=== PATIENT | female | born 1940 | race Hispanic/Latino ===

== ENCOUNTER 2021-03-29 12:38 | Outpatient (CLI) | payer MEDICARE ==
--- NOTE | 2021-03-29 15:53 | Mammography Report ---
DIGITAL SCREENING MAMMOGRAM WITH CAD, 03/29/2021 INDICATION: Routine screening mammography. TECHNIQUE: Digital bilateral 2D mammography was obtained in the craniocaudal and mediolateral obliq ue projections. This examination was interpreted with the benefit of Computer-Aided Detection analysi s. COMPARISON: 03/28/2020 FINDINGS: Breast Density: The breasts are heterogeneously dense, which may obscure small masses. There is no evidence of dominant mass, suspicious calcifications or architectural distortion in eithe r breast. Bilateral benign calcification. IMPRESSION: Follow up recommendation: Routine yearly BI-RADS Category 2: Benign. A "normal" or negative report should not discourage follow up or biopsy of a clinically significant f inding. A written summary of these findings will be mailed to the patient. The patient will be entered into a mammography reporting system which will generate a reminder letter for the patient's next appointmen t at the appropriate interval. [employer] recommends yearly mammograms starting at age 40 and continuing as l nikk[place] as a woman is in good health. Breast MRI is recommended for women with an approximate 20-25% or greater lifetime risk of breast cancer, including women with a strong family history of breast or ova christiane cancer or who have been treated for Hodgkin's disease. Signer Name: Masoud Snyder MD Signed: 03/29/2021 3:48 PM Workstation Name: [email or web address]
== END 2021-03-29 12:39 | disposition home or self-care (01) ==
LOC: SPVWC 12:38
PROVIDERS: ATTEND Surgery
DX: Z12.31 Encounter for screening mammogram for malignant neoplasm of breast (principal)
CPT/HCPCS: 77067

== ENCOUNTER 2021-09-04 08:53 | Emergency (ER) | payer MEDICARE ==
[2021-09-04] MEDS ORDERED: LACTATED RINGERS 1000 ML IV SOLN IV ONE (09:08)
--- NOTE | 2021-09-04 09:11 | Emergency Department Report ---
ED General Adult HPI - General Chief complaint: Nausea/Vomiting/Diarrhea Stated complaint: weak, body aches Time Seen by Provider: 09/04/21 09:08 Source: patient Mode of arrival: Ambulatory Limitations: No Limitations - History of Present Illness Initial comments: Patient presents with a roughly 2-week history of intermittent vomiting with diarrhea. Patient states that she has had ongoing nausea and vomiting since . She does not recall eating anything that tasted bad unusual. She has had no known sick contact. She has had no hematemesis or coffee-ground emesis. Patient does report intermittent diarrhea as well. She however states that she has had problems with chronic diarrhea throughout her life. The diarrhea is not as concerning to her as the vomiting. She states that her mouth is very dry. She has been unable to keep anything down. She has had generalized malaise with muscle aches and body aches. There has been no documented temperature. She has no dysuria or frequency. Patient states that she just does not feel well. - Related Data Home Medications Medication Instructions Recorded Confirmed Last Taken Atenolol [Tenormin] 100 mg PO DAILY 12/08/13 04/14/16 Unknown metFORMIN [Glucophage] 500 mg PO BID 12/08/13 04/14/16 Unknown Previous Rx's Medication Instructions Recorded Last Taken Type oxyCODONE /ACETAMINOPHEN [Percocet 1 tab PO Q8H PRN #21 tablet 04/15/16 Unknown Rx 5/325 mg] Ondansetron [Zofran Odt] 4 mg PO Q8HR #21 tab.rapdis 04/16/16 Unknown Rx Zolpidem [Ambien] 5 mg PO QHS PRN #7 tablet 04/16/16 Unknown Rx Ondansetron [Zofran ODT TAB] 8 mg PO Q8HR PRN #20 tab.rapdis 09/04/21 Unknown Rx cephALEXin [Keflex] 500 mg PO Q8HR #28 cap 09/04/21 Unknown Rx Allergies Allergy/AdvReac Type Severity Reaction Status Date / Time aspirin Allergy Bleeding Verified 12/08/13 03:45 nitrofurantoin Allergy Unknown Verified 12/08/13 03:44 macrocrystalline [From Macrodantin] Sulfa (Sulfonamide Allergy Headache Verified 12/08/13 03:44 Antibiotics) codeine AdvReac Unknown Verified 12/08/13 04:51 ED Review of Systems ROS: Stated complaint: weak, body aches Other details as noted in HPI Comment: All other systems reviewed and negative Constitutional: denies: fever Eyes: denies: vision change ENT: denies: epistaxis Respiratory: denies: cough Cardiovascular: denies: chest pain Endocrine: increased thirst Gastrointestinal: as per HPI Genitourinary: denies: dysuria Musculoskeletal: denies: back pain Skin: denies: rash Neurological: denies: headache Hematological/Lymphatic: denies: easy bruising ED Past Medical Hx - Past Medical History Hx Hypertension: Yes Hx Heart Attack/AMI: No Hx Diabetes: Yes Hx Renal Disease: No Hx Seizures: No Hx Asthma: No - Surgical History Hx Appendectomy: Yes Additional Surgical History: hysterectomy, bartholian gland removed - Family History Family history: hypertension - Social History Smoking Status: Never Smoker - Medications Home Medications: Home Medications Medication Instructions Recorded Confirmed Last Taken Type Atenolol [Tenormin] 100 mg PO DAILY 12/08/13 04/14/16 Unknown History metFORMIN [Glucophage] 500 mg PO BID 12/08/13 04/14/16 Unknown History oxyCODONE /ACETAMINOPHEN [Percocet 1 tab PO Q8H PRN #21 tablet 04/15/16 Unknown Rx 5/325 mg] Ondansetron [Zofran Odt] 4 mg PO Q8HR #21 tab.rapdis 04/16/16 Unknown Rx Zolpidem [Ambien] 5 mg PO QHS PRN #7 tablet 04/16/16 Unknown Rx Ondansetron [Zofran ODT TAB] 8 mg PO Q8HR PRN #20 tab.rapdis 09/04/21 Unknown Rx cephALEXin [Keflex] 500 mg PO Q8HR #28 cap 09/04/21 Unknown Rx ED Physical Exam - General Limitations: No Limitations, Other (Pulse ox noted and hypoxic. This improves with deep breath.) General appearance: alert, in no apparent distress, obese, other (Nontoxic) - Head Head exam: Present: atraumatic, normocephalic - Eye Eye exam: Present: normal appearance, EOMI. Absent: scleral icterus - ENT ENT exam: Present: mucous membranes dry, normal external ear exam - Neck Neck exam: Present: normal inspection. Absent: meningismus - Respiratory Respiratory exam: Present: normal lung sounds bilaterally. Absent: respiratory distress - Cardiovascular Cardiovascular Exam: Present: regular rate, normal rhythm - GI/Abdominal GI/Abdominal exam: Present: soft. Absent: distended, tenderness - Extremities Exam Extremities exam: Present: normal capillary refill. Absent: pedal edema - Back Exam Back exam: Absent: CVA tenderness (R), CVA tenderness (L) - Neurological Exam Neurological exam: Present: alert, oriented X3, CN II-XII intact. Absent: motor sensory deficit - Psychiatric Psychiatric exam: Present: normal affect, normal mood - Skin Skin exam: Present: warm, dry ED Course Vital Signs 09/04/21 09:02 Temperature 99.3 F Pulse Rate 85 Respiratory 16 Rate Blood Pressure 92/57 O2 Sat by Pulse 93 Oximetry - Reevaluation(s) Reevaluation #1: 09/04/21 09:11 Sepsis protocol was started. Old records noted. Reevaluation #2: 09/04/21 14:35 Labs are noted. UA was noted. Patient was discharged ED Medical Decision Making - Lab Data Result diagrams: 09/04/21 09:41 09/04/21 12:17 - Medical Decision Making Patient presents with reports of vomiting. Patient has not had no vomiting here but has had nausea. She is also had diarrhea here. She does have evidence of urinary tract infection and did report some urinary frequency. Patient does not have abdominal pain or distention to suggest bowel obstruction. She does not have intractable vomiting. There is no evidence of altered mental status, lactic acidosis, hypotension, or any other evidence of sepsis. There is no organ dysfunction. Patient was treated aggressively with IV hydration. She was feeling better and subsequently discharged. Critical Care Time: No Critical care attestation.: If time is entered above; I have spent that time in minutes in the direct care of this critically ill patient, excluding procedure time. ED Disposition Clinical Impression: Nausea vomiting and diarrhea, Dehydration, Cystitis Disposition: HOME / SELF CARE / HOMELESS Is pt being admited?: No Condition: Stable Instructions: Dehydration, Adult, [id number], Rehydration, Adult, Nausea and Vomiting, Adult, [id number], Diarrhea, Adult Additional Instructions: Push fluids. Have a bland diet. Return for problems. Have a brat diet. Drink plenty of water. Follow-up with your regular doctor for recheck and further management. Prescriptions: cephALEXin [Keflex] 500 mg PO Q8HR #28 cap Ondansetron [Zofran ODT TAB] 8 mg PO Q8HR PRN #20 tab.rapdis PRN Reason: Nausea Referrals: PRIMARY CARE, [Primary Care Provider] - 3-5 Days
--- NOTE | 2021-09-04 09:43 | XRay Report ---
CHEST 1 VIEW 09/04/2021 9:27 AM INDICATION / CLINICAL INFORMATION: sepsis. COMPARISON: 04/08/16 FINDINGS: SUPPORT DEVICES: None. HEART / MEDIASTINUM: No significant abnormality. LUNGS / PLEURA: No significant pulmonary or pleural abnormality. No pneumothorax. ADDITIONAL FINDINGS: No significant additional findings. IMPRESSION: 1. No acute findings. No significant change. Signer Name: Sloane Pereira MD Signed: 09/04/2021 9:39 AM Workstation Name: [id number]
[2021-09-04] MEDS ORDERED: ONDANSETRON 4 MG/2 ML INJ ONE (10:19)
[2021-09-04 10:36] LABS: Hematocrit 41.3 % (30.3-42.9); Hemoglobin 13.3 gm/dl (10.1-14.3); Mean Corpuscular HGB Conc 32 % (30-34); Mean Corpuscular Volume 89 fl (79-97); Platelet Count 195 K/mm3 (140-440); Red Blood Count 4.63 M/mm3 (3.65-5.03); Red Cell Distribution Width 13.3 % (13.2-15.2)
[2021-09-04 12:50] LABS: Albumin 3.2 g/dL (3.9-5); Calcium 8.3 mg/dL (8.4-10.2)
[2021-09-04] MEDS ORDERED: ONDANSETRON 4 MG/2 ML INJ IV ONE (13:16)
[2021-09-04 13:19] LABS: Bilirubin,Urine NEG (Negative); Blood,Urine MOD (Negative); Color,Urine Yellow (Yellow); Mucus,Urine FEW /HPF; Protein,Urine <15 mg/dL mg/dL (Negative); Urobilinogen,Urine < 2.0 mg/dL (<2.0)
[2021-09-04] MEDS ORDERED: cephALEXin 500 MG CAP PO ONE (14:10)
[2021-09-04] MEDS ORDERED: ONDANSETRON 4 MG ODT TAB PO ONE (15:07)
[2021-09-04 15:40] VITALS: BP 125/61
== END 2021-09-04 15:00 | disposition home or self-care (01) ==
LOC: ED 08:53
DX: E86.0 Dehydration (principal); N30.90 Cystitis, unspecified without hematuria; R11.2 Nausea with vomiting, unspecified; R19.7 Diarrhea, unspecified; I10 Essential (primary) hypertension; E11.9 Type 2 diabetes mellitus without complications; Z90.710 Acquired absence of both cervix and uterus; Z88.6 Allergy status to analgesic agent; Z88.8 Allergy status to other drugs, medicaments and biological substances; Z88.2 Allergy status to sulfonamides; Z88.5 Allergy status to narcotic agent; Z79.899 Other long term (current) drug therapy
CPT/HCPCS: 36415; 71045; 80053; 81001; 82140; 82962; 84484; 85025; 87040; 87076; 87086; 87186; 96361; 96374; 99284; J2405; J7120; J3490; Q0162